=== PATIENT | female | born 1985 | race American Indian/Alaskan Native ===

== ENCOUNTER 2017-07-24 07:40 | Day surgery (SDC) | payer OTHER ==
[2017-07-17 08:39] VITALS: BMI 34.0
[2017-07-24] MEDS ORDERED: Propofol 10 mg/ml Inj (20 ML) ONE (09:12)
[2017-07-24] MEDS ORDERED: Midazolam 2 MG/2 ML VIAL ONE (09:12)
[2017-07-24] MEDS ORDERED: Lactated Ringer's 1,000 ML IV ONE (09:15)
[2017-07-24] MEDS ORDERED: cefOXitin IV 2 gm in Dextrose 2 GM/50 ML BAG IVPB ONE (09:26)
[2017-07-24] MEDS ORDERED: HYDROmorphone 0.5 mg/0.5 ml ISec IVP PRN (09:54)
--- NOTE | 2017-07-24 10:58 | OP ---
PROCEDURE DATE: 07/24/2017 PREOPERATIVE DIAGNOSES: Fibroid uterus and menorrhagia. POSTOPERATIVE DIAGNOSES: Fibroid uterus and menorrhagia. PROCEDURE: Hysteroscopic myomectomy/polypectomy. FINDINGS: 1 cm anterior submucosal polyps/myoma. The remainder of the endometrial cavity is normal. SURGEON: Dr. Davidson Wang. TYPE OF ANESTHESIA: General. ESTIMATED BLOOD LOSS: Less than 1 mL. COMPLICATIONS: Nil. DESCRIPTION OF PROCEDURE: After the risks, benefits and alternatives of the planned procedures including but not limited to infection, hemorrhage, deep vein thrombosis, atelectasis, pneumonia, pulmonary embolism, damage to bladder, damage to the ureter, renal insufficiency, renal failure, wound infection, wound dehiscence, incisional hernia, keloid formation, damage to large and small intestine, damage to the inferior vena cava and the aorta requiring extensive repair, anesthesia complications, electrolyte imbalance, possibility of , fluid overload, cerebral edema, and embolism recurrence, and persistent have been explained to the patient and all her questions answered. Informed consent was obtained. The patient was taken to the operating room in a stable condition. Under a suitable level of general anesthesia, she was prepped and draped in a sterile fashion after having been placed in a dorsal lithotomy position. A Kaminski catheter was inserted. Examination on anesthesia revealed a normal-sized uterus anteverted with no adnexal masses. A weighted speculum was inserted into the vagina. The anterior lip of the cervix was crossed using a single-tooth tenaculum, an endocervical curettage was performed and scant tissue was obtained. The uterus was sounded to 7 cm. Cervix was dilated to #16 Hanks dilator. A hysteroscope was inserted into the uterus and using a MyoSure device, an anterior 1-cm myoma was resected up to the level of the endometrium with good hemostasis. Hysteroscope was then removed. An endometrial curettage was performed. Scant tissue was obtained and submitted separately for pathology. At the end of the procedure, instruments were removed from the vagina. There was good hemostasis. The patient was then transferred to the recovery room in a stable condition. Pad and instrument counts were correct x2. There were no complications. Davidson Wang MD [facility] # [id number]
[2017-07-24 11:49] VITALS: RESP 16; O2SAT 98
[2017-07-24 12:22] VITALS: BP 121/78; PULSE 65; TEMP 97.6
== END 2017-07-24 12:10 | disposition home or self-care (01) ==
LOC: C.SDS 07:40
PROVIDERS: ATTEND Obstetrics & Gynecology Reproductive Endocrinology
DX: D25.0 Submucous leiomyoma of uterus (principal); N84.1 Polyp of cervix uteri; N92.0 Excessive and frequent menstruation with regular cycle
CPT/HCPCS: 58558; 88305; J0694; J1170; J1885; J2250; J2405; J2704; J3010; J7120